=== PATIENT | male | born 1995 ===

== ENCOUNTER 2016-09-18 14:12 | Emergency (ER) | payer OTHER ==
[2016-09-18 15:31] VITALS: BP 129/85
--- NOTE | 2016-09-18 16:59 | UC ---
Abdominal Pain Female HPI - HPI Summary HPI Summary: 21 yo male with LUQ abd pain x 2 months pain radiated to left testicle was started on doxy for presumed urethritis symptoms persist occasion diaphoresis pain seems to be worsening no n/v/d no f/c mild dysuria - History of Current Complaint Chief Complaint: UCAbdominalPain Stated Complaint: ABD PAIN/PERSONAL Time Seen by Provider: 09/18/16 16:51 Hx Obtained From: Patient Onset/Duration: Gradual Onset, Lasting Weeks Severity Initially: Mild Severity Currently: Moderate Pain Intensity: 4 - worsens at times Pain Scale Used: 0-10 Numeric Allergies/Adverse Reactions: Allergies Allergy/AdvReac Type Severity Reaction Status Date / Time No Known Allergies Allergy Verified 09/18/16 15:31 Home Medications: Home Medications Doxycycline (Monohydrate) [Doxycycline Monohydrate] 100 mg PO BID 09/18/16 [ History Confirmed 09/18/16] PMH/Surg Hx/FS Hx/Imm Hx Previously Healthy: Yes - Surgical History Surgical History: Yes Surgery Procedure, Year, and Place: Right femur osteomyelitis 2006, 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, 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 - Family History Known Family History: Negative: Cardiac Disease, Hypertension, Diabetes - Social History Alcohol Use: Occasionally Substance Use Type: None Smoking Status (MU): Never Smoked Tobacco Review of Systems Constitutional: Negative Skin: Negative Eyes: Negative ENT: Negative Respiratory: Negative Cardiovascular: Negative Gastrointestinal: Abdominal Pain Genitourinary: Dysuria, Frequency Motor: Negative Neurovascular: Negative Musculoskeletal: Negative Neurological: Negative Psychological: Negative All Other Systems Reviewed And Are Negative: Yes Physical Exam Triage Information Reviewed: Yes Appearance: Well-Appearing, No Pain Distress, Well-Nourished Vital Signs: Initial Vital Signs Temp 98.1 F 09/18/16 15:23 Pulse 64 09/18/16 15:23 Resp 24 09/18/16 15:23 BP 129/85 09/18/16 15:23 Vital Signs Reviewed: Yes Eyes: Positive: Conjunctiva Clear ENT: Positive: Hearing grossly normal. Negative: Nasal congestion, Nasal drainage, Trismus, Muffled/hoarse voice Dental: Negative: Gross Decay/Caries @, Dental Fracture @, Abscess @ Neck: Positive: Supple, Nontender, Enlarged Nodes @ Respiratory: Positive: Lungs clear, Normal breath sounds, No respiratory distress Cardiovascular: Positive: RRR, No Murmur, Pulses Normal Abdomen Description: Positive: Soft, Other: - left testicle normal lie and orientation/non tender. Negative: Nontender - tender LLQ, CVA Tenderness (R), CVA Tenderness (L), Distended, Guarding, Hernia @, Hepatomegaly, McBurney's Point Tenderness, Peritoneal Signs, Pulsatile Mass, Splenomegaly Abd Pain Female Course/Dx - Course Course Of Treatment: PT REQUESTS UROLOGIST CONSULT - Differential Dx/Diagnosis Provider Diagnoses: LEFT SIDED ABD PAIN OF UNCERTAIN CAUSE. LEFT TESTICULAR PAIN OF UNCERTAIN CAUSE Discharge - Discharge Plan Condition: Stable Disposition: HOME Patient Education Materials: Acute Abdominal Pain (ED), Testicle Pain (ED) Referrals: Meredith Cooper MD [Medical Doctor] - As Soon As Possible (UROLOGIST) Charlie Mitchell MD [Medical Doctor] - If Needed (DEMOLITION CRANE OPERATOR) Marcelo Mcintyre MD [Medical Doctor] - As Soon As Possible (UROLOGIST ) Additional Instructions: I AM UNSURE OF THE CAUSE OF YOUR SYMPTOMS I SUGGEST FOLLOW UP WITH SPECIALIST TO ER FOR NEW OR WORSENING SYMPTOMS
--- NOTE | 2016-09-18 18:41 | RAD ---
INDICATION: LEFT side abdominal pain radiating to the LEFT testicle. Symptom duration 2 days. Kidney stone protocol. COMPARISON: None. TECHNIQUE: Multidetector CT images were obtained from the lung bases to the ischial tuberosities. Evaluation of the viscera is limited without IV contrast. Multiplanar reformation. REPORT: Unremarkable visualized inferior thorax. No CT abnormality of the unenhanced liver, gallbladder, pancreas, spleen. Negative for CT abnormality of the upper GI, small bowel, or appendix visualized along the RIGHT pelvic sidewall and in the central pelvis. Unremarkable colon. Negative for perienteric inflammatory change, ascites, free air, hernias. Normal adrenal glands. Negative for nephrolithiasis or hydronephrosis. Unremarkable nondilated ureters and partially distended urinary bladder. Phleboliths noted adjacent to the distal LEFT ureter without concern. Symmetric seminal vesicles. Unremarkable prostate. Unremarkable dominant retroperitoneal vasculature. Negative for lymphadenopathy. Negative for suspicious osseous lesions. IMPRESSION: No acute abdominopelvic process pathologic evident. Normal appendix documented. Negative for urolithiasis or hydronephrosis.
== END 2016-09-18 19:05 | disposition home or self-care (01) ==
LOC: UCCORT 14:12
DX: R10.12 Left upper quadrant pain (principal); N50.812 Left testicular pain; R30.0 Dysuria
CPT/HCPCS: 74176; 81003; 99201; G0463